=== PATIENT | male | born 1960 | race Caucasian/White ===

== ENCOUNTER 2019-03-01 09:22 | Emergency (ER) | payer OTHER ==
[2019-03-01] MEDS: KETOROLAC 30 MG INJ IM (09:45)
== END 2019-03-01 11:05 | disposition home or self-care (01) ==
LOC: FTE 09:22
DX: S49.92XA Unspecified injury of left shoulder and upper arm, initial encounter (principal); X58.XXXA Exposure to other specified factors, initial encounter; Y92.9 Unspecified place or not applicable
CPT/HCPCS: 73030; 96372; 99284-25